=== PATIENT | female | born 1980 | race Hispanic/Latino ===

== ENCOUNTER → 2017-04-17 | Outpatient (CLI) | payer OTHER ==
[~2017-04-17] VITALS: Ht 162.6 cm; Wt 76.2 kg
[~2017-04-17] MED LIST: ADVIL COLD &1 TABLET PO; ADVIL200 MG PO; CALCIUM 500 MG1 EACH PO; CIPRO500 MG PO; COUGH MED PO; DICYCLOMINE HCL20 MG PO; LORTAB 5-325 M1 EACH PO; MULTI-VITAMIN1 EAC4 PO; NAPROXEN500 MG PO; NORCO 5/3251 TABLET PO; PROBIOTIC1 EAC3 PO; PURE TAURINE500 MG PO; PYRIDIUM100 MG PO; PYRIDIUM200 MG PO; TOPAMAX200 MG PO; TOPAMAX50 MG PO; TROKENDI XR25 MG PO; ZOFRAN8 MG PO
== END | disposition home or self-care (01) ==
LOC: AMB 14:00
PROC: 0DBK8ZX Excision of Ascending Colon, Via Natural or Artificial Opening Endoscopic, Diagnostic (ICD-10-PCS; principal; 2017-04-17)
DX: D12.2 Benign neoplasm of ascending colon (principal); K64.8 Other hemorrhoids; J45.909 Unspecified asthma, uncomplicated
CPT/HCPCS: 88305

== ENCOUNTER 2017-05-26 12:55 | Emergency (ER) | payer OTHER ==
[~2017-05-26] VITALS: Ht 162.6 cm; Wt 75.3 kg
[2017-05-26 13:53] LABS: HEMATOCRIT 40.1 % (36.0-46.0); MCHC 33.7 G/DL (30.0-36.0); MEAN PLAT.VOLUME 12.1 uM^3 (9.5-12.4); PLATELET COUNT 212 K/uL (156-360); RBC DIS.WIDTH-CV 13.6 % (11.8-14.6); RBC DIS.WIDTH-SD 46.5 % (39-53); RED BLOOD COUNT 4.36 M/uL (3.80-5.20); WHITE BLOOD COUNT 10.9 K/uL (4.1-10.2)
[2017-05-26 14:02] LABS: CHLORIDE 106 mEq/L (99-109); SODIUM 140 mEq/L (136-147)
[2017-05-26 14:04] LABS: GLUCOSE 77 mg/dL (70-99)
[2017-05-26 14:05] LABS: ANION GAP 8 MEQ/L (2-14)
[2017-05-26 14:08] LABS: GFR ESTIMATE (CALCULATED) > 59 mL/min/
[2017-05-26 14:09] LABS: UREA NITROGEN (BUN) 11 mg/dL (9-23)
[2017-05-26] MEDS ORDERED: ANTIVERT25 MG PO (16:53)
[2017-05-26 17:06] VITALS: BP 174/76
== END 2017-05-26 17:07 | disposition home or self-care (01) ==
LOC: EME 12:55
DX: R42 Dizziness and giddiness (principal); J45.901 Unspecified asthma with (acute) exacerbation
CPT/HCPCS: 80048; 85027; 93005; 94640; 99281; 99283

== ENCOUNTER → 2018-01-12 | Outpatient (CLI) | payer OTHER ==
[~2018-01-12] MED LIST changes: +ANTIVERT25 MG PO
== END | disposition home or self-care (01) ==
LOC: NUC 08:00
DX: R93.7 Abnormal findings on diagnostic imaging of other parts of musculoskeletal system (principal); M72.2 Plantar fascial fibromatosis
CPT/HCPCS: 78315; A9503